=== PATIENT | female | born 1980 | race Caucasian/White ===

== ENCOUNTER 2022-03-19 09:41 | Emergency (ER) | payer OTHER, SELFPAY ==
--- NOTE | ~2022-03-19 | CT_ITS ---
EXAMINATION: CT HEAD WITHOUT CONTRAST CLINICAL INFORMATION: Left-sided headache left-sided weakness. COMPARISON: None TECHNIQUE: Contiguous axial imaging was performed from the skull base to vertex without intravenous administration of contrast. This CT examination was performed using dose optimization techniques as appropriate, variously including the following: *Automated exposure control *Adjustment of mA and/or kV according to patient size (this includes techniques or standardized protocols for targeted exams where dose is matched to indication/reason for exam; i.e. extremities or head) *Use of iterative reconstruction technique DLP: 586 mGy-cm FINDINGS: There is no mass hemorrhage or cerebral edema. Ventricles and basal cisterns normal. Soft tissues: Normal. Bone: No fracture. Sinuses: Mild mucosal thickening of the ethmoid sinuses. Mastoid air cells clear. CT/CT head/brain wo IV con IMPRESSION: No acute intracranial pathology.
[2022-03-19 09:50] VITALS: BP 140/84; PULSE 68; RESP 15; TEMP 36.4; O2SAT 97; BMI 35.9
[2022-03-19 10:10] LABS: MANUAL DIFF FLAG NO
[2022-03-19 10:11] LABS: Basophils Percent Auto 0.4 % (0-2); Eosinophils Absolute Auto 0.1 X10*3/uL (0.0-0.4); Eosinophils Percent Auto 0.6 % (0-4); Hematocrit 40.9 % (37.0-47.0); Hemoglobin 13.8 g/dl (12.0-16.0); Imm Gran Abs Auto 0.03 X10*3/uL (0.00-0.03); Imm Gran Pct Auto 0.4 % (0.0-0.4); Lymphocytes Absolute Auto 2.3 X10*3/uL (1.2-4.9); Lymphocytes Percent Auto 27.7 % (20-40); Mean Corpuscular HGB Conc 33.7 g/dl (31.0-35.0); Mean Corpuscular Hemoglobin 29.6 pg (27.0-33.0); Mean Corpuscular Volume 87.6 fL (80.0-98.0); Mean Platelet Volume 10.9 fL (9.4-12.3); Monocytes Absolute Auto 0.5 X10*3/uL (0.1-1.2); Monocytes Percent Auto 5.7 % (2-11); Neutrophils Absolute Auto 5.5 x10*3/uL (2.0-8.3); Neutrophils Percent Auto 65.2 % (45-73); Platelet Count 287 X10*3/uL (160-400); Red Blood Count 4.67 X10*6/uL (4.20-5.50); Red Cell Distribution Width 11.6 % (11.0-16.0); White Blood Count 8.4 X10*3/uL (4.8-10.8)
[2022-03-19 10:14] LABS: UPreg QC Valid YES; Urine Pregnancy NEGATIVE (NEGATIVE)
[2022-03-19 10:15] LABS: Appearance Urine Cloudy; Color Urine Yellow; Glucose Urine UA Negative (Negative); Leukocyte Esterase Urine Negative (Negative); Nitrite Urine Negative (Negative); PH 5.5 (5.0-9.0); Specific Gravity - Urine >= 1.030 (1.005-1.025); UMIC TRIGGER UACC YES; Urine Blood Large (3+) (Negative); Urine Ketones Trace mg/dL (Negative); Urine Protein 30 (1+) mg/dL (Neg-Trace)
[2022-03-19 10:25] LABS: Bacteria Urine 1+ (None Seen); Hyaline Casts Urine 0-2 /LPF (0-2); Squamous Epithelial Cell Urine >20 /HPF (0-2); WBC Urine 0-5 /HPF (0-5)
[2022-03-19 10:28] LABS: Anion Gap 12 (12-20); Blood Urea Nitrogen 12 mg/dL (9-16); Calcium 9.3 mg/dL (8.4-10.2); Carbon Dioxide 24 mmol/L (22-29); Chloride 106 mmol/L (96-108); Estimated Glomerular Filt Rate > 60; Glucose Random 114 mg/dL (60-115); Potassium 4.3 mmol/L (3.3-5.1); Sodium 138 mmol/L (135-145)
--- NOTE | 2022-03-19 11:12 | ED_ITS ---
HPI - Headache General Chief Complaint: Headache Stated Complaint: headache l eye pain l side pain Time Seen by Provider: 03/19/22 11:12 Source: patient Mode of arrival: ambulatory Limitations: no limitations History of Present Illness HPI Narrative: 42-year-old female with no known medical history presents to the ER for evaluation of a worsening left-sided headache for the last 3 days. She states the headache involves her entire left head, extends down into her neck. She has had stabbing pain behind both eyes, worse on the left side. She also states that she ?does not feel like her left side of her body is working right. ? She states she is having feeling of coldness and chills up and down her body. She has been nauseous with lightheadedness and dizziness as well. She has had pain in the left eye and behind the left eye. MD elicited complaint: headache Onset (ago): day(s) (3-4) Onset description: gradually Location: left and retro-orbital Severity: moderate Quality & Timing: aching Exacerbating factors: none Relieving factors: dark room Context: occurred at rest Associated symptoms: nausea, photophobia, sensitivity to sound, eye pain, wea kness and lightheadedness Treatments prior to arrival: none Related Data Previous Rx's Medication Instructions Recorded nthesfvhgf-buzygpqkijpia-mgtzussr 1 cap PO TID PRN pain #10 caps 03/19/22 50 mg-300 mg-40 mg capsule (Fioricet) Allergies Allergy/AdvReac Type Severity Reaction Status Date / Time aspirin Allergy Fainting Verified 03/19/22 11:32 Review of Systems Review of Systems: Constitutional: No Fever, No Chills ENT/Mouth: No sore throat, No Rhinorrhea, No Swallowing Difficulty Eyes: + Eye Pain, No Swelling, No Redness Cardiovascular: No Chest Pain, No SOB, No Orthopnea, No Edema Respiratory: No Cough, No Sputum, No Wheezing, No dyspnea Gastrointestinal: + Nausea, No Vomiting, No Diarrhea, No abdominal Pain Musculoskeletal: No joint pain, No Myalgias Skin: No Skin Lesions, No rash Neuro: +Weakness, + Numbness, + Dizziness, + Headache Psych: + Anxiety/Panic, No Depression Heme/Lymph: No Bruising, No Lymphadenopathy Endocrine: No Polyuria, No Polydipsia PMFSH Social History Social History Advance Directives: No Advance Directives Information Provided: No Physical Exam Vital Signs: Vital Signs: Last Vital Signs Temp 97.5 F 03/19/22 09:50 Pulse 66 03/19/22 13:31 Resp 20 03/19/22 13:31 BP 137/81 03/19/22 13:31 Pulse Ox 99 03/19/22 13:31 O2 Del Method 03/19/22 13:31 BMI result Body Mass Index 35.9 Appearance: Alert. Oriented X3. No acute distress. Eyes: Pupils equal, round and reactive to light. EOMI, no nystagmus. ENT: Pharynx normal. Neck: Normal inspection. Neck supple. CVS: Normal heart rate and rhythm. Pulses normal. Respiratory: No respiratory distress. Breath sounds normal. Abdomen: Soft and non-tender. +BS x4 Skin: Skin warm and dry. Normal skin color. Normal skin turgor. No rashes. Extremities: No lower extremity edema. Neuro: Oriented X 3. No motor deficit. No sensory deficit. CN II-XII intact. nonfocal. Normal speech and cognition. Course Course Course Narrative: 42-year-old female presents the ER for evaluation of left sided headache, left sided eye pain associated with nausea, dizzy left-sided weakness and tingling x3 days. She states she has had ongoing symptoms, intermittently since age 25 which she feels are related to possible MS but her doctors have attributed her sxs to anxiety. Today her neuro intact. No hx migraines in the past. Will get labs, CT head, and medicate with reglan, benadryl, toradol and reassess. Reevaluation(s) Reevaluation #1: Labs unremarkable. Inflammatory markers unremarkable. Viral test negative. CT head normal. Patient feeling better. She has an appointment with her PCP on April 02. She would like an MRI. We discussed the role of MRI in the emergency department versus outpatient. Comfortable discharge home with outpatient follow-up for her symptoms. Fioricet prescribed for headaches. Stable for DC. Patient agrees with plan. Medications Administered Discontinued Medications Generic Name Dose Route Start Last Admin Trade Name Freq PRN Reason Stop Dose Admin Diphenhydramine HCl 50 mg 03/19/22 11:13 03/19/22 11:33 Diphenhydramine Hcl 50 Mg/Ml Vial IVPUSH 03/19/22 11:14 50 mg ONCE ONE Administration Sodium Chloride 1,000 mls @ 999 mls/hr 03/19/22 11:15 03/19/22 13:23 Ns IVCONT 03/19/22 12:15 Infused .Q1H1M PEG Infusion Ketorolac Tromethamine 30 mg 03/19/22 11:13 03/19/22 11:48 Ketorolac Tromethamine 30 Mg/Ml Vial IVPUSH 03/19/22 11:14 Not Given ONCE ONE Metoclopramide HCl 10 mg 03/19/22 11:13 03/19/22 11:33 Metoclopramide Hcl 10 Mg/2 Ml Vial IVPUSH 03/19/22 11:14 10 mg ONCE ONE Administration Medical Decision Making Lab Data Result Diagrams: 03/19/22 10:04 03/19/22 10:04 Labs: Lab Results 03/19/22 03/19/22 03/19/22 Range/Units 10:04 10:04 10:04 WBC 8.4 (4.8-10.8) X10*3/uL RBC 4.67 (4.20-5.50) X10*6/uL Hgb 13.8 (12.0-16.0) g/dl Hct 40.9 (37.0-47.0) % MCV 87.6 (80.0-98.0) fL MCH 29.6 (27.0-33.0) pg MCHC 33.7 (31.0-35.0) g/dl RDW 11.6 (11.0-16.0) % Plt Count 287 (160-400) X10*3/uL MPV 10.9 (9.4-12.3) fL Immature Gran % (Auto) 0.4 (0.0-0.4) % Neut % (Auto) 65.2 (45-73) % Lymph % (Auto) 27.7 (20-40) % [place] % (Auto) 5.7 (2-11) % Eos % (Auto) 0.6 (0-4) % Baso % (Auto) 0.4 (0-2) % Lymph # (Auto) 2.3 (1.2-4.9) X10*3/uL [place] # (Auto) 0.5 (0.1-1.2) X10*3/uL Eos # (Auto) 0.1 (0.0-0.4) X10*3/uL Baso # (Auto) 0.0 (0.0-0.2) X10*3/uL Abs Immat Gran (auto) 0.03 (0.00-0.03) X10*3/uL Absolute Neuts (auto) 5.5 (2.0-8.3) x10*3/uL Absolute Nucleated RBC 0.000 (0.0-0.012) X10*3/uL Nucleated RBC % (auto) 0.0 (0.0-0.2) /100WBC ESR (0-20) MM/HR Sodium 138 (135-145) mmol/L Potassium 4.3 (3.3-5.1) mmol/L Chloride 106 (96-108) mmol/L Carbon Dioxide 24 (22-29) mmol/L Anion Gap 12 (12-20) BUN 12 (9-16) mg/dL Creatinine 0.71 (0.5-1.4) mg/dL Estim Creat Clear Calc 109.0 Estimated GFR > 60 Random Glucose 114 (60-115) mg/dL Calcium 9.3 (8.4-10.2) mg/dL C-Reactive Protein 0.84 H (< or = 0.50) mg/dL Urine Color Yellow Urine Appearance Cloudy Urine pH 5.5 (5.0-9.0) Ur Specific [place] >= 1.030 H (1.005-1.025) Urine Protein 30 (1+) H (Neg-Trace) mg/dL Urine Glucose (UA) Negative (Negative) mg/dL Urine Ketones Trace (Negative) mg/dL Urine Blood Large (3+) H (Negative) Urine Nitrite Negative (Negative) Ur Leukocyte Esterase Negative (Negative) Urine RBC 3-5 H (0-2) /HPF Urine WBC 0-5 (0-5) /HPF Ur Squamous Epith Cells >20 (0-2) /HPF Urine Bacteria 1+ (None Seen) Hyaline Casts 0-2 (0-2) /LPF Urine Test (NEGATIVE) Influenza Type A (PCR) (Negative) Influenza Type B (PCR) (Negative) RSV RNA Qual (PCR) (Negative) SARS-CoV-2 RNA (RT-PCR) (Negative) 03/19/22 03/19/2203/19/22 Range/Units 10:04 10:04 11:44 WBC (4.8-10.8) X10*3/uL RBC (4.20-5.50) X10*6/uL Hgb (12.0-16.0) g/dl Hct (37.0-47.0) % MCV (80.0-98.0) fL MCH (27.0-33.0) pg MCHC (31.0-35.0) g/dl RDW (11.0-16.0) % Plt Count (160-400) X10*3/uL MPV (9.4-12.3) fL Immature Gran % (Auto) (0.0-0.4) % Neut % (Auto) (45-73) % Lymph % (Auto) (20-40) % [place] % (Auto) (2-11) % Eos % (Auto) (0-4) % Baso % (Auto) (0-2) % Lymph # (Auto) (1.2-4.9) X10*3/uL [place] # (Auto) (0.1-1.2) X10*3/uL Eos # (Auto) (0.0-0.4) X10*3/uL Baso # (Auto) (0.0-0.2) X10*3/uL Abs Immat Gran (auto) (0.00-0.03) X10*3/uL Absolute Neuts (auto) (2.0-8.3) x10*3/uL Absolute Nucleated RBC (0.0-0.012) X10*3/uL Nucleated RBC % (auto) (0.0-0.2) /100WBC ESR 16 (0-20) MM/HR Sodium (135-145) mmol/L Potassium (3.3-5.1) mmol/L Chloride (96-108) mmol/L Carbon Dioxide (22-29) mmol/L Anion Gap (12-20) BUN (9-16) mg/dL Creatinine (0.5-1.4) mg/dL Estim Creat Clear Calc Estimated GFR Random Glucose (60-115) mg/dL Calcium (8.4-10.2) mg/dL C-Reactive Protein (< or = 0.50) mg/dL Urine Color Urine Appearance Urine pH (5.0-9.0) Ur Specific [place] (1.005-1.025) Urine Protein (Neg-Trace) mg/dL Urine Glucose (UA) (Negative) mg/dL Urine Ketones (Negative) mg/dL Urine Blood (Negative) Urine Nitrite (Negative) Ur Leukocyte Esterase (Negative) Urine RBC (0-2) /HPF Urine WBC (0-5) /HPF Ur Squamous Epith Cells (0-2) /HPF Urine Bacteria (None Seen) Hyaline Casts (0-2) /LPF Urine Test NEGATIVE (NEGATIVE) Influenza Type A (PCR) NEGATIVE (Negative) Influenza Type B (PCR) NEGATIVE (Negative) RSV RNA Qual (PCR) NEGATIVE (Negative) SARS-CoV-2 RNA (RT-PCR) NEGATIVE (Negative) Discharge Plan Discharge Clinical Impression: Migraine Patient Disposition: Home, Self-Care Instructions: Migraine Headache (ED) Additional Instructions: Your CT scan today was normal. Your lab workup was normal. Your viral test were negative. Recommend following up with her PCP. Recommend following up with Neurology for further evaluation. If you develop new or worsening symptoms call 911 or come back to the ER for fu rther evaluation. Prescriptions: New oyqsfjberd-vwldlupvbsjca-quba [Fioricet] 50-300-40 mg capsule 1 cap PO TID PRN (Reason: pain) Qty: 10 0RF Referrals: [facility] Neuro/Sleep [Provider Group] Malena Caceres MD [Primary Care Provider] -
[2022-03-19] MEDS: 0.9 % Sodium Chloride 1,000 ML 999 ML IVCONT (11:32)
[2022-03-19] MEDS: Metoclopramide HCl 10 MG/2 ML VIAL IVPUSH (11:33)
[2022-03-19] MEDS: diphenhydrAMINE HCL 50 MG/ML VIAL IVPUSH (11:33)
[2022-03-19 12:08] VITALS: BP 142/85; PULSE 87; RESP 15; O2SAT 98
[2022-03-19 12:42] LABS: Influenza A PCR NEGATIVE (Negative); Influenza B PCR NEGATIVE (Negative); Resp Syncy Virus RNA Qual PCR NEGATIVE (Negative); SARS COV2 PCR INHOUSE NEGATIVE (Negative)
[2022-03-19 13:31] VITALS: BP 137/81; PULSE 66; RESP 20; O2SAT 99
[2022-03-19 15:32] LABS: C Reactive Protein 0.84 mg/dL (< or = 0.50)
[2022-03-19 16:01] LABS: Erythrocyte Sedimentation Rate 16 MM/HR (0-20)
== END 2022-03-19 16:20 | disposition home or self-care (01) ==
PROVIDERS: Physician Assistant; Emergency Provider Student in an Organized Health Care Education/Training Program; PCP Internal Medicine
DX: G43.909 Migraine, unspecified, not intractable, without status migrainosus (principal); H57.12 Ocular pain, left eye; Z79.899 Other long term (current) drug therapy; Z20.822 Contact with and (suspected) exposure to COVID-19
CPT/HCPCS: 0241U; 36415; 70450; 80048; 81001; 81025; 85025; 85652; 86140; 96361; 96374; 96375; 99284; J1200; J2765

== ENCOUNTER 2023-02-08 23:01 | Emergency (ER) | payer OTHER, SELFPAY ==
--- NOTE | ~2023-02-08 | XR_ITS ---
EXAMINATION: XR CHEST CLINICAL INFORMATION: Chest pain COMPARISON: None available. TECHNIQUE: Frontal view of the chest was obtained. FINDINGS: The lungs are clear with no focal consolidation. No evidence of pneumothorax, pulmonary edema, or pleural effusions. The cardiomediastinal silhouette is unremarkable. No acute osseous findings. XR/XR chest 1V IMPRESSION: No acute cardiopulmonary findings.
[2023-02-08 23:46] VITALS: BP 167/69; PULSE 72; RESP 18; TEMP 36.8; O2SAT 97; BMI 40.7
--- NOTE | 2023-02-08 23:53 | MHC.EDTECH ---
Patient brought from triage,labs,and Sars/FLU/RSV, obtained and sent to lab.
[2023-02-08 23:59] LABS: Hematocrit 39.9 % (37.0-47.0); Hemoglobin 13.5 g/dl (12.0-16.0); Mean Corpuscular HGB Conc 33.8 g/dl (31.0-35.0); Mean Corpuscular Hemoglobin 29.7 pg (27.0-33.0); Mean Corpuscular Volume 87.7 fL (80.0-98.0); Mean Platelet Volume 10.9 fL (9.4-12.3); Platelet Count 281 X10*3/uL (160-400); Red Blood Count 4.55 X10*6/uL (4.20-5.50); Red Cell Distribution Width 11.7 % (11.0-16.0); White Blood Count 11.2 X10*3/uL (4.8-10.8)
[2023-02-09 00:15] LABS: Alanine Aminotransferase 14 U/L (0-31); Albumin Level 4.2 g/dL (3.5-5.0); Alkaline Phosphatase 55 U/L (39-117); Anion Gap 11 (12-20); Aspartate Amino Transferase 15 U/L (5-31); Bilirubin Total 0.3 mg/dL (0.0-1.0); Blood Urea Nitrogen 12 mg/dL (9-16); Calcium 9.6 mg/dL (8.4-10.2); Carbon Dioxide 26 mmol/L (22-29); Chloride 105 mmol/L (96-108); Creatinine Clr Calc Pharmacy 124.3; Estimated Glomerular Filt Rate > 60; Glucose Random 114 mg/dL (60-115); Potassium 3.8 mmol/L (3.3-5.1); Sodium 138 mmol/L (135-145); Total Protein 7.9 g/dL (6.5-8.0)
[2023-02-09 00:35] LABS: Influenza A PCR NEGATIVE (Negative); Influenza B PCR NEGATIVE (Negative); Resp Syncy Virus RNA Qual PCR NEGATIVE (Negative); SARS COV2 PCR INHOUSE NEGATIVE (Negative)
[2023-02-09 03:45] VITALS: BP 157/82; PULSE 67; RESP 14; TEMP 36.8; O2SAT 100
--- NOTE | 2023-02-09 03:46 | PC.NURSE ---
Pt ca&ox4, no signs of distress. family at bedside Pt reports cough onset x 2wks, lightheadedness, sob, congestion, post nasal drip, productive cough - white/yellow mucus, headache and mid/upper back pain 5/10. Sick contact gkid possible rsv. Pt also reports rash that comes and goes on chest and abdm that itches and pastrana. Pt denies n/v, diarrhea and fever. Plan of care ongoing.
--- NOTE | 2023-02-09 05:47 | ED_ITS ---
HPI - General Adult General Chief complaint: General Medical Stated complaint: SOB, Dizziness Time Seen by Provider: 02/09/23 04:02 History of Present Illness HPI narrative: Patient is a 43-year-old female presents today with having coughing upper respiratory symptoms, generalized malaise has been ongoing for few days. There is no diaphoresis. Cough is nonproductive in nature patient is vaccinated for COVID. Currently has quit smoking for last 3 years. Related Data Previous Rx's Medication Instructions Recorded qcolacpypk-errmozhuliqek-fgoiclnt 1 cap PO TID PRN pain #10 caps 03/19/22 50 mg-300 mg-40 mg capsule (Fioricet) azithromycin 250 mg tablet See Rx Instructions PO .COMPLEX 02/09/23 upper resp infection #6 tabs prednisone 20 mg tablet 40 mg (2 x 20 mg) PO DAILY #10 tabs 02/09/23 Allergies Allergy/AdvReac Type Severity Reaction Status Date / Time aspirin Allergy Fainting Verified 03/19/22 11:32 Review of Systems 2 Review of Systems: Positive coughing shortness of breath Yes all other systems are reviewed and are negative [facility] Past Medical History Attestation statement: The following information was validated with the patient. Social History Smoked in Last 30 Days: No Use of substances other than those prescribed or required for medical reasons: No Advance Directives: No Advance Directives Information Provided: Yes Physical Exam ED Vital Signs: Vital Signs - 24 hr 02/08/23 23:46 02/09/23 03:45 Temperature 98.2 F 98.2 F Pulse Rate 72 67 Respiratory Rate 18 14 Blood Pressure 167/69 H 157/82 H Pulse Oximetry 97 100 Oxygen Delivery Method Room Air Room Air BMI result Body Mass Index 40.7 Const Other: Appearance: Alert. Oriented X3. No acute distress. Eyes: Pupils equal, round and reactive to light. ENT: Pharynx normal. Neck: Normal inspection. Neck supple. No lymph nodes noted. No crepitus CVS: Normal heart rate and rhythm. Pulses normal. Normal S1 and S2 Respiratory: No respiratory distress. Breath sounds normal. Minimal Wheezing. No rales. Moving good air Abdomen: Soft and nontender. No rigidity. No distention. good BS x4 Skin: Skin warm and dry. Normal skin color. Normal skin turgor. Extremities: No lower extremity edema. Neurovascular intact to all extremities. No Lacerations. No Rash Neuro: Oriented X 3. No motor deficit. No sensory deficit. Moving all extermities. No slurred speech Medical Decision Making Medical Decision Making [facility] Narrative: Positive coughing shortness of breath generalized malaise. Patient's white count slightly elevated 11. Hemoglobin is normal at 13. LFTs are normal. Flu RSV COVID were all negative. My interpretation of patient's chest x-ray is grossly negative. There is no pneumonia no pneumothorax no rib fracture noted. Will give a neb treatment. My interpretation of patient's EKG showed a sinus rhythm heart rate is 80 [place] QRS QTC within normal limits there is no acute ST segment elevation Differential Diagnosis Differential Diagnoses: The differential diagnosis associated with the presentation includes Asthma, bronchitis, COVID, RSV, flu Admission/Observation Consideration of admission/observation: Escalation of care including admission/observation considered O2 sats normal patient well appearing no distress. Lab Data [facility] Lab Attestation statement: I reviewed the patient's lab results. 02/08/23 23:51 02/08/23 23:51 Labs: Lab Results 02/08/23 Range/Units 23:51 WBC 11.2 H (4.8-10.8) X10*3/uL RBC 4.55 (4.20-5.50) X10*6/uL Hgb 13.5 (12.0-16.0) g/dl Hct 39.9 (37.0-47.0) % MCV 87.7 (80.0-98.0) fL MCH 29.7 (27.0-33.0) pg MCHC 33.8 (31.0-35.0) g/dl RDW 11.7 (11.0-16.0) % Plt Count 281 (160-400) X10*3/uL MPV 10.9 (9.4-12.3) fL Absolute Nucleated RBC 0.000 (0.0-0.012) X10*3/uL Nucleated RBC % (auto) 0.0 (0.0-0.2) /100WBC Sodium 138 (135-145) mmol/L Potassium 3.8 (3.3-5.1) mmol/L Chloride 105 (96-108) mmol/L Carbon Dioxide 26 (22-29) mmol/L Anion Gap 11 L (12-20) BUN 12 (9-16) mg/dL Creatinine 0.66 (0.5-1.4) mg/dL Estim Creat Clear Calc 124.3 Estimated GFR > 60 Random Glucose 114 (60-115) mg/dL Calcium 9.6 (8.4-10.2) mg/dL Total Bilirubin 0.3 (0.0-1.0) mg/dL AST 15 (5-31) U/L ALT 14 (0-31) U/L Alkaline Phosphatase 55 (39-117) U/L Total Protein 7.9 (6.5-8.0) g/dL Albumin 4.2 (3.5-5.0) g/dL Influenza Type A (PCR) NEGATIVE (Negative) Influenza Type B (PCR) NEGATIVE (Negative) RSV RNA Qual (PCR) NEGATIVE (Negative) SARS-CoV-2 RNA (RT-PCR) NEGATIVE (Negative) Independent Interpretation I performed an independent interpretation of an: EKG and Plain X-Ray (Chest x- rays negative for pneumonia pneumothorax) Discharge Plan Discharge Clinical Impression: Bronchitis Patient Disposition: Home, Self-Care Instructions: Acute Bronchitis (ED) Prescriptions: New azithromycin 250 mg tablet See Rx Instructions .ROUTE .COMPLEX Qty: 6 0RF Rx Instructions: take 500 mg today (day 1), then 250 mg for 4 days (days 2-5) prednisone 20 mg tablet 40 mg PO DAILY Qty: 10 0RF No Action pgdbaoqmfq-uhpldqwdbvwil-pvvy [Fioricet] 50-300-40 mg capsule 1 cap PO TID PRN (Reason: pain) Qty: 10 0RF Referrals: Malena Caceres MD [Primary Care Provider] - 02/11/23
--- NOTE | 2023-02-09 05:50 | ECG_ITS ---
Test Reason : SOB Blood Pressure : / mmHG Vent. Rate : 079 BPM Atrial Rate : 079 BPM P-R Int : 134 ms QRS Dur : 078 ms QT Int : 358 ms P-R-T Axes : 011 -10 000 degrees QTc Int : 410 ms Normal sinus rhythm with sinus arrhythmia Normal ECG No previous ECGs available Referred By: Jeannie Bella Electronically Signed By:TYRA ONEILL MD
--- NOTE | 2023-02-09 06:28 | PC.NURSE ---
Resp called for med tx. plan of care ongoing.
[2023-02-09] MEDS: Albuterol Sulfate (0.083%) 2.5 MG/3 ML VIAL.NEB INHALE (06:35)
[2023-02-09 06:38] VITALS: PULSE 68; RESP 16; O2SAT 97
== END 2023-02-09 06:45 | disposition home or self-care (01) ==
PROVIDERS: Emergency Provider Emergency Medicine Emergency Medical Services; PCP Internal Medicine
DX: J40 Bronchitis, not specified as acute or chronic (principal); R05.9 Cough, unspecified; R53.81 Other malaise; Z20.822 Contact with and (suspected) exposure to COVID-19; Z20.828 Contact with and (suspected) exposure to other viral communicable diseases
CPT/HCPCS: 0241U; 71045; 80053; 85027; 93005; 94640; 99284; 99285

== ENCOUNTER 2023-02-26 22:34 | Emergency (ER) | payer OTHER, SELFPAY ==
[2023-02-26 23:19] VITALS: BP 176/89; PULSE 69; RESP 16; TEMP 36.6; O2SAT 99; BMI 40.7
[2023-02-27 00:49] VITALS: BP 117/74; PULSE 66; RESP 16; TEMP 36.7; O2SAT 96
--- NOTE | 2023-02-27 00:53 | MHC.EDTECH ---
This pct just assumed care of pt ,vitals taken ,urine sample collected and sent to lab.
--- NOTE | 2023-02-27 01:00 | MHC.EDTECH ---
Patient second type and screen drawn and sent to lab .
[2023-02-27 01:09] LABS: Appearance Urine Cloudy; Color Urine Yellow; Glucose Urine UA Negative (Negative); Leukocyte Esterase Urine Negative (Negative); Nitrite Urine Negative (Negative); PH 5.5 (5.0-9.0); Urine Blood Negative (Negative); Urine Ketones 15 mg/dL (Negative); Urine Protein Negative (Neg-Trace)
[2023-02-27] MEDS: Acetaminophen 325 MG TABLET 975 MG PO (01:24)
[2023-02-27] MEDS: Lidocaine 4 % Patch ADH..PATCH 1 PATCH TRANSDERMA ×2 (01:24→02:52)
[2023-02-27 01:28] LABS: UPreg QC Valid YES; Urine Pregnancy NEGATIVE (NEGATIVE)
[2023-02-27 01:52] LABS: COVID-19 Test Negative (Negative); IDNOW Serial# 08D9AD1C; IDNOW Serial# BCCEAD1C; Influenza A Negative (Negative); Influenza B2 Negative (Negative)
[2023-02-27 02:26] VITALS: BP 131/66; PULSE 63; RESP 16; TEMP 36.7; O2SAT 97
--- NOTE | 2023-02-27 02:32 | ED.BACK ---
HPI - Back Pain/Injury General Chief Complaint: Back Pain/Injury Stated Complaint: lower back pain Time Seen by Provider: 02/27/23 01:18 Source: patient Mode of arrival: ambulatory History of Present Illness HPI Narrative: 43-year-old female who suffers from depression and reports that yesterday she had a headache and then became very concerned and anxious and then woke up this morning with lower back pain, none of this is associated with fever, chills, nausea, vomiting, abdominal pain or dysuria and patient denies any IV drug use. Related Data Previous Rx's Medication Instructions Recorded qdpmrrzkdu-ebebyspkiercm-wjdqvcps 1 cap PO TID PRN pain #10 caps 03/19/22 50 mg-300 mg-40 mg capsule (Fioricet) azithromycin 250 mg tablet See Rx Instructions PO .COMPLEX 02/09/23 upper resp infection #6 tabs fluticasone propionate 50 1 spray intranasal DAILY #16 grams 02/09/23 mcg/actuation nasal spray,suspension (Flonase Allergy Relief) prednisone 20 mg tablet 40 mg (2 x 20 mg) PO DAILY #10 tabs 02/09/23 cyclobenzaprine 5 mg tablet 5 mg PO BEDTIME PRN muscle spasm 02/27/23 #4 tabs Allergies Allergy/AdvReac Type Severity Reaction Status Date / Time aspirin Allergy Fainting Verified 03/19/22 11:32 Review of Systems Review of Systems: Prep positives and negatives as stated in HPI PMFSH Past Medical History Source: nursing notes reviewed Social History Social History Advance Directives: No Advance Directives Information Provided: No Physical Exam Vital Signs: Vital Signs: Last Vital Signs Temp 98.0 F 02/27/23 02:26 Pulse 63 02/27/23 02:26 Resp 16 02/27/23 02:26 BP 131/66 02/27/23 02:26 Pulse Ox 97 02/27/23 02:26 O2 Del Method Room Air 02/27/23 02:26 BMI result Body Mass Index 40.7 VITAL SIGNS: Reviewed. GENERAL: Well developed, well nourished, in no acute distress. HEAD: Normocephalic/atraumatic EYES: PERRLA, EOMI EARS: Ext canals without abnormality, TMs non-bulging and non-erythematous NOSE: Nares patent bilateral OROPHARYNX: no oral lesions noted, posterior pharynx clear and non-erythematous without noted tonsillar enlargement/erythema/exudates NECK: Supple, no adenopathy, no midline cervical spine tenderness to palpation or step-offs, however there is tenderness to palpation across the right paraspinal base as it extends down onto the trapezius LUNGS: Normal breath sounds. No adventitious sounds or accessory muscle use. SpO2<97> CARDIOVASCULAR: Regular rate and rhythm without noted murmurs ABDOMEN: Soft, non-tender, non-distended with bowel sounds. BACK: No midline vertebral tenderness to palpation or step-offs. MUSCULOSKELETAL: No tenderness, deformities, or effusions noted on gross inspection. EXTREMITIES: No cyanosis, clubbing or edema. SKIN: Inspection of the skin reveals no rashes NEUROLOGIC: Alert and oriented x 4. Strength and sensation to light touch were grossly intact x 4. Medications Administered Discontinued Medications Generic Name Dose Route Start Last Admin Trade Name Freq PRN Reason Stop Dose Admin Acetaminophen 975 mg 02/27/23 01:17 02/27/23 01:24 Acetaminophen 325 Mg Tablet PO 02/27/23 01:18 975 mg ONCE ONE Administration Cyclobenzaprine HCl 5 mg 02/27/23 02:31 02/27/23 02:52 Cyclobenzaprine Hcl 5 Mg Tablet PO 02/27/23 02:32 5 mg ONCE ONE Administration Lidocaine 1 patch 02/27/23 01:17 02/27/23 01:24 Lidocaine 4 % Patch Adh..Patch TRANSDERMA 02/27/23 01:18 1 patch ONCE ONE Administration Protocol Lidocaine 1 patch 02/27/23 02:31 02/27/23 02:52 Lidocaine 4 % Patch Adh..Patch TRANSDERMA 02/27/23 02:32 1 patch ONCE ONE Administration Protocol Medical Decision Making Medical Decision Making MDM Narrative: 43-year-old female with history and clinical presentation, DDX: Musculoskeletal, muscle spasm, acute on chronic back pain. No clinical suspicion for spinal abscess/cauda equina. I reviewed urinalysis was negative for UTI or hematuria, urine is negative and viral testing is negative. Patient was provided with Tylenol/ibuprofen/lidocaine patch as well as Flexeril and on re-evaluation is improved. Differential Diagnosis Differential Diagnoses: The differential diagnosis associated with the presentation includes Please see the discussion above Admission/Observation Consideration of admission/observation: Escalation of care including admission/observation considered Please see the discussion above Lab Data MDM Lab Attestation statement: I reviewed the patient's lab results. Please see the discussion above Labs: Lab Results 02/27/23 02/27/23 Range/Units 00:55 01:24 Urine Color Yellow Urine Appearance Cloudy Urine pH 5.5 (5.0-9.0) Ur Specific [place] 1.010 (1.005-1.025) Urine Protein Negative (Neg-Trace) mg/dL Urine Glucose (UA) Negative (Negative) mg/dL Urine Ketones 15 (Negative) mg/dL Urine Blood Negative (Negative) Urine Nitrite Negative (Negative) Ur Leukocyte Esterase Negative (Negative) Urine Test NEGATIVE (NEGATIVE) COVID-19 (GIOVANI) Negative (Negative) COVID-19 Clin Com See Note Influenza Type A (KRISTY) Negative (Negative) Influenza Type B (KRISTY) Negative (Negative) Influenza A & B Note See Note Discharge Plan Discharge Clinical Impression: Back pain, Muscle spasm Patient Disposition: Home, Self-Care Instructions: Muscle Spasm (ED), Back Pain (ED) Additional Instructions: 1. Tylenol 1000 mg, orally, every 6 hours as needed for pain control. Do not exceed 4000 mg within 24 hours. 2. Ibuprofen 400 mg, orally with milk or food, every 6 hours as needed for pain control. 3. Valq-qtu-akpyigc lidocaine patch, apply to area of maximal tenderness as directed on the outside packaging. 4. Please follow-up with your primary care doctor on Tuesday morning. Do not hesitate to return to the emergency room for any acute worsening or new symptoms that you may experience. Prescriptions: New cyclobenzaprine 5 mg tablet 5 mg PO BEDTIME PRN (Reason: muscle spasm) Qty: 4 0RF No Action ucyplapscy-ngviuvmtqweac-pjxn [Fioricet] 50-300-40 mg capsule 1 cap PO TID PRN (Reason: pain) Qty: 10 0RF azithromycin 250 mg tablet See Rx Instructions .ROUTE .COMPLEX Qty: 6 0RF Rx Instructions: take 500 mg today (day 1), then 250 mg for 4 days (days 2-5) prednisone 20 mg tablet 40 mg PO DAILY Qty: 10 0RF fluticasone propionate [Flonase Allergy Relief] 50 mcg/actuation spray,suspension 1 spray intranasal DAILY Qty: 16 0RF Rx Instructions: administer into each nostril Referrals: Malena Caceres MD [Primary Care Provider] - Interventions: ED Discharge Assessment Last Done: 02/27/23 02:57 Discharge Date/Time: 02/27/23 02:58
[2023-02-27] MEDS: Cyclobenzaprine HCl 5 MG TABLET PO (02:52)
== END 2023-02-27 02:58 | disposition home or self-care (01) ==
PROVIDERS: Emergency Provider Student in an Organized Health Care Education/Training Program; PCP Internal Medicine
DX: M54.50 Low back pain, unspecified (principal); M62.830 Muscle spasm of back; Z11.52 Encounter for screening for COVID-19
CPT/HCPCS: 81003; 81025; 87502; 87635; 99284

== ENCOUNTER 2023-03-08 00:46 | Emergency (ER) | payer OTHER, SELFPAY ==
--- NOTE | 2023-03-08 | ECG_ITS ---
Test Reason : neck pain Blood Pressure : / mmHG Vent. Rate : 077 BPM Atrial Rate : 077 BPM P-R Int : 132 ms QRS Dur : 080 ms QT Int : 372 ms P-R-T Axes : 015 -15 000 degrees QTc Int : 420 ms Normal sinus rhythm Normal ECG When compared with ECG of 09-FEB-2023 06:02, No significant change was found Referred By: Generic ED Physician Electronically Signed By:TRISH TODD MD
--- NOTE | ~2023-03-08 | CT_ITS ---
EXAMINATION: CT HEAD WITHOUT CONTRAST CT ANGIOGRAM HEAD AND NECK CLINICAL INFORMATION: Headaches and facial numbness. COMPARISON: CT head dated 03/19/2022 TECHNIQUE: Noncontrast CT head was performed initially. Test bolus sequences followed by intravenous administration 70 mL of Omnipaque 300 intravenous contrast. Helical imaging was performed in the axial plane from the mediastinum to the skull vertex. Delayed postcontrast imaging of the head was also performed. The data was processed at the radiological technologist's workstation for generation of MIP sequences. Three-dimensional volume rendered reformatted images were also generated at an offline 3-D workstation. This CT examination was performed using dose optimization techniques as appropriate, variously including the following: *Automated exposure control *Adjustment of mA and/or kV according to patient size (this includes techniques or standardized protocols for targeted exams where dose is matched to indication/reason for exam; i.e. extremities or head) *Use of iterative reconstruction technique The degree of stenosis determined by NASCET criteria. DLP: 2059 mGy-cm FINDINGS: BONES, SOFT TISSUES AND LUNG APICES: No overt abnormality is appreciated. CTA NECK: The aortic arch has a classic configuration and the major arch vessel origins are non-stenotic. The vertebral arteries are co-dominant and both vertebral origins are widely patent. Both common carotid arteries are normal in course and caliber. Both internal carotid arteries demonstrate mild atherosclerotic plaque without significant stenosis. CTA HEAD: There is normal opacification of the major intracranial vessels. No acute proximal large vessel occlusion, focal flow-limiting stenosis, or saccular intracranial aneurysm is identified. No abnormal parenchymal enhancement or regional oligemia is visualized. HEAD (noncontrast and delayed): No intracranial mass, intercerebral edema, hemorrhage, or midline shift is evident. The ventricles and sulci are stable in size and configuration. No extra-axial collections are appreciated. No pathologic intracranial enhancement. Dural sinuses are patent. The paranasal sinuses are well-aerated and clear. CT/CT angio head neck IMPRESSION: * No acute intracranial pathology. * No large vessel occlusion or hemodynamically significant stenosis within the intracranial or extracranial arterial vasculature.
[2023-03-08 01:01] VITALS: BP 158/91; PULSE 83; RESP 20; TEMP 36.9; O2SAT 100; BMI 38.4
[2023-03-08 01:28] LABS: MANUAL DIFF FLAG NO
[2023-03-08 01:32] LABS: Basophils Percent Auto 0.3 % (0-2); Eosinophils Absolute Auto 0.1 X10*3/uL (0.0-0.4); Eosinophils Percent Auto 0.7 % (0-4); Hematocrit 39.1 % (37.0-47.0); Imm Gran Abs Auto 0.03 X10*3/uL (0.00-0.03); Imm Gran Pct Auto 0.3 % (0.0-0.4); Lymphocytes Absolute Auto 4.7 X10*3/uL (1.2-4.9); Lymphocytes Percent Auto 45.3 % (20-40); Mean Corpuscular HGB Conc 33.2 g/dl (31.0-35.0); Mean Corpuscular Hemoglobin 29.4 pg (27.0-33.0); Mean Corpuscular Volume 88.5 fL (80.0-98.0); Mean Platelet Volume 11.6 fL (9.4-12.3); Monocytes Absolute Auto 0.6 X10*3/uL (0.1-1.2); Monocytes Percent Auto 6.1 % (2-11); Neutrophils Absolute Auto 4.9 x10*3/uL (2.0-8.3); Neutrophils Percent Auto 47.3 % (45-73); Platelet Count 245 X10*3/uL (160-400); Red Blood Count 4.42 X10*6/uL (4.20-5.50); Red Cell Distribution Width 11.6 % (11.0-16.0); White Blood Count 10.3 X10*3/uL (4.8-10.8)
--- NOTE | 2023-03-08 01:40 | MHC.EDTECH ---
Patient ekg taken and was read by Provider ,blood drawn and sent to lab .
[2023-03-08 01:44] LABS: Alanine Aminotransferase 14 U/L (0-31); Albumin Level 4.1 g/dL (3.5-5.0); Alkaline Phosphatase 53 U/L (39-117); Anion Gap 14 (12-20); Aspartate Amino Transferase 16 U/L (5-31); Bilirubin Total 0.3 mg/dL (0.0-1.0); Blood Urea Nitrogen 12 mg/dL (9-16); Calcium 9.1 mg/dL (8.4-10.2); Carbon Dioxide 25 mmol/L (22-29); Chloride 105 mmol/L (96-108); Creatinine Clr Calc Pharmacy 110.2; Estimated Glomerular Filt Rate > 60; Glucose Random 108 mg/dL (60-115); Potassium 4.1 mmol/L (3.3-5.1); Sodium 140 mmol/L (135-145); Total Protein 7.6 g/dL (6.5-8.0)
[2023-03-08 01:49] LABS: Troponin-I High Sensitivity < 2.7 ng/L (<3.5-17.0)
[2023-03-08 03:35] VITALS: BP 128/81; PULSE 101; RESP 16; TEMP 36.8; O2SAT 97
--- NOTE | 2023-03-08 03:54 | ED.NEUROSD ---
HPI - Neuro Symptoms/Deficit General Chief Complaint: General Medical Stated Complaint: neck pain Time Seen by Provider: 03/08/23 03:27 Source: patient Mode of arrival: ambulatory Limitations: no limitations History of Present Illness HPI Narrative: 43 yo female with reported TIA 9 years ago but not on medications and the history of diagnosis did not involve neurology - she is not on aspirin or a statin currently. She tells me she has been dealing with atraumatic neck pain bilaterally for 1 day. Denies injury or overuse. She notes she woke up around midnight with tingling in both hands, facial numbness, palpitations and feeling pale and shaky. This lasted seconds she came to the ED. She denies recent neck trauma or manipulation Onset (ago): hour(s) (4) Location: left face, right face, left arm and right arm History of same: No Severity: mild Quality: numb and tingling Relieving factors: rest Exacerbating factors: none Context: sudden onset On Anticoagulants: No Associated symptoms: other (neck pain) Related Data Previous Rx's Medication Instructions Recorded fpiflpeqen-tkihujlsztrkf-kazsbdap 1 cap PO TID PRN pain #10 caps 03/19/22 50 mg-300 mg-40 mg capsule (Fioricet) azithromycin 250 mg tablet See Rx Instructions PO .COMPLEX 02/09/23 upper resp infection #6 tabs fluticasone propionate 50 1 spray intranasal DAILY #16 grams 02/09/23 mcg/actuation nasal spray,suspension (Flonase Allergy Relief) prednisone 20 mg tablet 40 mg (2 x 20 mg) PO DAILY #10 tabs 02/09/23 cyclobenzaprine 5 mg tablet 5 mg PO BEDTIME PRN muscle spasm 02/27/23 #4 tabs Allergies Allergy/AdvReac Type Severity Reaction Status Date / Time aspirin Allergy Fainting Verified 03/19/22 11:32 Review of Systems Review of Systems: Constitutional : No Fever, No Chills, No Fatigue ENT/Mouth : No sore throat, No Rhinorrhea Eyes: No Eye Pain, No Swelling, No Redness Cardiovascular : No Chest Pain, No SOB, No Dyspnea on Exertion, pos palpitations Respiratory : No Cough, No Sputum Gastrointestinal : No Nausea, No Vomiting, No Diarrhea, No abdominal Pain Genitourinary : No Dysuria, No Urinary Frequency, No Hematuria, Musculoskeletal : No joint pain, No Myalgias, No Joint Swelling Skin : No Skin Lesions, No rash Neuro : No Weakness, pos Numbness, No Dizziness, no Headache Psych : No Anxiety/Panic, No Depression All other systems reviewed and are negative [facility] [place] Past Medical History Attestation statement: The following information was validated with the patient. Source: old records reviewed Social History Social History Alcohol intake: current Alcohol intake frequency: a few times a week Alcohol type: wine Smoked in Last 30 Days: No Use of substances other than those prescribed or required for medical reasons: No Advance Directives: No Advance Directives Information Provided: No Physical Exam Vital Signs: Vital Signs: Last Vital Signs Temp 98.3 F 03/08/23 05:55 Pulse 106 H 03/08/23 05:55 Resp 16 03/08/23 05:55 BP 140/70 H 03/08/23 05:55 Pulse Ox 97 03/08/23 05:55 O2 Del Method Room Air 03/08/23 05:55 BMI result Body Mass Index 38.4 Appearance: Alert. Oriented X3. No acute distress. Eyes: Pupils equal, round and reactive to light. ENT: Pharynx normal. Neck: Normal inspection. Neck supple. CVS: Normal heart rate and rhythm. Pulses normal. Respiratory: No respiratory distress. Breath sounds normal. Abdomen: Soft and nontender. Skin: Skin warm and dry. Normal skin color. Normal skin turgor. Extremities: No lower extremity edema. No calf ttp Neuro: Oriented X 3. No motor deficit. No sensory deficit. Medications Administered Discontinued Medications Generic Name Dose Route Start Last Admin Trade Name Shahram PRN Reason Stop Dose Admin Iohexol 75 ml 03/08/23 05:49 03/08/23 05:49 Iohexol 350 Mg/Ml 100 Ml Infus..Btl IV 03/08/23 05:50 75 ml ONCE ONE Administration Medical Decision Making Medical Decision Making [facility] Narrative: 43 yo female with reported TIA though I see no abnormal CT scans here she is not on medications for TIA and did not see a neurologist who comes in with palpitations, bilateral hand tingling and neck pain (neck pain x 1 day) at this time symptoms are atypical will obtain EKG, lytes and CTA head and neck for dissection though would be low clinical probability. She is not toxic and NIH is 0 at this time. Differential Diagnosis Differential Diagnoses: The differential diagnosis associated with the presentation includes palpitaitons, anxiety, neck spasm Admission/Observation Consideration of admission/observation: Escalation of care including admission/observation considered can be discharged home - CTA negative, NIH 0, EKG and trop negative Lab Data MDM Lab Attestation statement: I reviewed the patient's lab results. 03/08/23 01:24 03/08/23 01:24 Labs: Lab Results 03/08/23 Range/Units 01:24 WBC 10.3 (4.8-10.8) X10*3/uL RBC 4.42 (4.20-5.50) X10*6/uL Hgb 13.0 (12.0-16.0) g/dl Hct 39.1 (37.0-47.0) % MCV 88.5 (80.0-98.0) fL MCH 29.4 (27.0-33.0) pg MCHC 33.2 (31.0-35.0) g/dl RDW 11.6 (11.0-16.0) % Plt Count 245 (160-400) X10*3/uL MPV 11.6 (9.4-12.3) fL Immature Gran % (Auto) 0.3 (0.0-0.4) % Neut % (Auto) 47.3 (45-73) % Lymph % (Auto) 45.3 H (20-40) % [place] % (Auto) 6.1 (2-11) % Eos % (Auto) 0.7 (0-4) % Baso % (Auto) 0.3 (0-2) % Lymph # (Auto) 4.7 (1.2-4.9) X10*3/uL [place] # (Auto) 0.6 (0.1-1.2) X10*3/uL Eos # (Auto) 0.1 (0.0-0.4) X10*3/uL Baso # (Auto) 0.0 (0.0-0.2) X10*3/uL Abs Immat Gran (auto) 0.03 (0.00-0.03) X10*3/uL Absolute Neuts (auto) 4.9 (2.0-8.3) x10*3/uL Absolute Nucleated RBC 0.000 (0.0-0.012) X10*3/uL Nucleated RBC % (auto) 0.0 (0.0-0.2) /100WBC Sodium 140 (135-145) mmol/L Potassium 4.1 (3.3-5.1) mmol/L Chloride 105 (96-108) mmol/L Carbon Dioxide 25 (22-29) mmol/L Anion Gap 14 (12-20) BUN 12 (9-16) mg/dL Creatinine 0.72 (0.5-1.4) mg/dL Estim Creat Clear Calc 110.2 Estimated GFR > 60 Random Glucose 108 (60-115) mg/dL Calcium 9.1 (8.4-10.2) mg/dL Total Bilirubin 0.3 (0.0-1.0) mg/dL AST 16 (5-31) U/L ALT 14 (0-31) U/L Alkaline Phosphatase 53 (39-117) U/L Troponin I High Sens < 2.7 (<3.5-17.0) ng/L Total Protein 7.6 (6.5-8.0) g/dL Albumin 4.1 (3.5-5.0) g/dL Independent Interpretation I performed an independent interpretation of an: EKG and CT Scan (normal ) Interpretation: Rate: 77 Rhythm: NSR Campbell: left Normal P waves. Normal ITZEL. Normal QRS complex. ST T wave : normal no CRYSTAL qTC: normal prior studies: no acute ischemia The study has been interpreted contemporaneously by me. . Radiology Impression Discussion of test interpretation with radiology: I have reviewed the radiologist's reading. Independent Historian Clinical information obtained from an independent historian. History obtained from or confirmed by: Other External Record Review External record reviewed: Inpatient record NIH Stroke Scale Internal: Initial- Upon Arrival Level of Consciousness: Alert Level of Consciousness Questions: Answers both questions correctly Level of Consciousness Commands: Performs both tasks correctly Best Gaze: Normal Visual: No visual loss Facial Palsy: Normal Motor Arm (Right): No drift Motor Arm (Left): No drift Motor Leg (Right): No drift Motor Leg (Left): No drift Limb Ataxia: Absent Sensory: Normal Best Language: No aphasia Dysarthia: Normal Extinction and Inattention: No abnormality Score: 0 Discharge Plan Discharge Clinical Impression: Heart palpitations, Neck pain Patient Disposition: Home, Self-Care Instructions: Heart Palpitations (ED), Neck Pain (ED) Additional Instructions: return for weakness, numbness, chest pain or any other concerns. follow up with your doctor. BONES, SOFT TISSUES AND LUNG APICES: No overt abnormality is appreciated. CTA NECK: The aortic arch has a classic configuration and the major arch vessel origins are non-stenotic. The vertebral arteries are co-dominant and both vertebral origins are widely patent. Both common carotid arteries are normal in course and caliber. Both internal carotid arteries demonstrate mild atherosclerotic plaque without significant stenosis. CTA HEAD: There is normal opacification of the major intracranial vessels. No acute proximal large vessel occlusion, focal flow-limiting stenosis, or saccular intracranial aneurysm is identified. No abnormal parenchymal enhancement or regional oligemia is visualized. HEAD (noncontrast and delayed): No intracranial mass, intercerebral edema, hemorrhage, or midline shift is evident. The ventricles and sulci are stable in size and configuration. No extra-axial collections are appreciated. No pathologic intracranial enhancement. Dural sinuses are patent. The paranasal sinuses are well-aerated and clear. CT/CT angio head neck IMPRESSION: * No acute intracranial pathology. * No large vessel occlusion or hemodynamically significant stenosis within the intracranial or extracranial arterial vasculature. Prescriptions: No Action fvyxlkutid-yowcvthugqvrk-niks [Fioricet] 50-300-40 mg capsule 1 cap PO TID PRN (Reason: pain) Qty: 10 0RF azithromycin 250 mg tablet See Rx Instructions .ROUTE .COMPLEX Qty: 6 0RF Rx Instructions: take 500 mg today (day 1), then 250 mg for 4 days (days 2-5) prednisone 20 mg tablet 40 mg PO DAILY Qty: 10 0RF fluticasone propionate [Flonase Allergy Relief] 50 mcg/actuation spray,suspension 1 spray intranasal DAILY Qty: 16 0RF Rx Instructions: administer into each nostril cyclobenzaprine 5 mg tablet 5 mg PO BEDTIME PRN (Reason: muscle spasm) Qty: 4 0RF Stand Alone Forms: Work/School Release
[2023-03-08] MEDS: iohexoL 350 MG/ML 100 ML INFUS..BTL 75 ML IV (05:49)
[2023-03-08 05:55] VITALS: BP 140/70; PULSE 106; RESP 16; TEMP 36.8; O2SAT 97
--- NOTE | 2023-03-08 06:38 | PC.NURSE ---
Pt A&Ox4, reports right side neck discomfort feeling like pressure since yesterday with intermittent tingling feeling to bilateral hands. 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 Pt ambulated independently with steady gait.
== END 2023-03-08 06:43 | disposition home or self-care (01) ==
PROVIDERS: Emergency Provider Emergency Medicine; PCP Internal Medicine
DX: R00.2 Palpitations (principal); M54.2 Cervicalgia; Z86.73 Personal history of transient ischemic attack (TIA), and cerebral infarction without residual deficits; Z79.899 Other long term (current) drug therapy
CPT/HCPCS: 36415; 70496; 70498; 80053; 84484; 85025; 93005; 99284; Q9967

== ENCOUNTER → 2023-03-08 01:08 | Outpatient (BNV) | payer OTHER, SELFPAY | PROVIDERS: Emergency Provider Emergency Medicine; PCP Internal Medicine; Visit Provider Internal Medicine Cardiovascular Disease | DX: R00.2 Palpitations (principal); M54.2 Cervicalgia | CPT/HCPCS: 93010 ==

== ENCOUNTER 2023-12-10 06:53 | Emergency (ER) | payer OTHER, SELFPAY ==
--- NOTE | 2023-12-10 | ECG_ITS ---
Test Reason : PALPATATIONS Blood Pressure : / mmHG Vent. Rate : 057 BPM Atrial Rate : 057 BPM P-R Int : 136 ms QRS Dur : 078 ms QT Int : 404 ms P-R-T Axes : -12 000 002 degrees QTc Int : 393 ms Sinus bradycardia Otherwise normal ECG When compared with ECG of 08-MAR-2023 01:08, No significant change was found Referred By: Jane Bueno Electronically Signed By:FIOR SAMANO
--- NOTE | ~2023-12-10 | XR_ITS ---
EXAMINATION: XR CHEST 1 VIEW CLINICAL INFORMATION: palpitation COMPARISON: January 2023 TECHNIQUE: Single portable frontal view. Tubes and lines: None Lungs and pleura: Both lungs are clear. Heart and mediastinum: The mediastinum is within normal limits.. Bones/soft tissue: Skeletal structures included are normal for patient's age. XR/XR chest 1V IMPRESSION: Normal chest x-ray Electronically signed by: Mehdi Zaidi MD 12/10/2023 09:57 AM EDT
[2023-12-10 06:57] VITALS: BP 145/93; PULSE 79; RESP 18; TEMP 36.9; O2SAT 98; BMI 39.9
--- NOTE | 2023-12-10 07:41 | ED.GENADULT ---
HPI - General Adult General Chief complaint: General Medical Stated complaint: heart flutter upon exertion/sob more often Time Seen by Provider: 12/10/23 07:31 Source: patient and family Mode of arrival: ambulatory Limitations: no limitations History of Present Illness ED Provider: DR. Bueno HPI narrative: 43-year-old female walked into the emergency department for evaluation of palpitation and chest pain with exertion. Symptoms started recently when she goes upstairs started have palpitation feel like her heart is going to stop palpitation is accompanied with a mid chest pain with no radiation, symptoms also was associated with shortness of breath, patient recently quit smoking, declined using any drugs. No recent travel, no recent prolonged immobilization, no lower extremity swelling or tenderness. Patient had cardiology evaluation last year for chest pain and reportedly the workup was negative. Related Data Previous Rx's ?Medication ?Instructions ?Recorded hbhqmcsjpq-lyuejltbhcpdx-oukiejow 1 cap PO TID PRN pain #10 caps 03/19/22 50 mg-300 mg-40 mg capsule (Fioricet) azithromycin 250 mg tablet See Rx Instructions PO .COMPLEX 02/09/23 upper resp infection #6 tabs fluticasone propionate 50 1 spray intranasal DAILY #16 grams 02/09/23 mcg/actuation nasal spray,suspension (Flonase Allergy Relief) prednisone 20 mg tablet 40 mg (2 x 20 mg) PO DAILY #10 tabs 02/09/23 cyclobenzaprine 5 mg tablet 5 mg PO BEDTIME PRN muscle spasm 02/27/23 #4 tabs cefuroxime axetil 500 mg tablet 500 mg PO BID #14 tabs 12/10/23 Allergies Allergy/AdvReac Type Severity Reaction Status Date / Time aspirin Allergy Fainting Verified 12/10/23 07:00 Review of Systems Review of Systems: All other systems are reviewed and are negative Constitutional: Reports as per HPI and Reports no additional constitutional complaints Eyes: Reports as per HPI and Reports no additional eye complaints Reports system reviewed and no additional complaints, except as documented Cardiovascular: Reports as per HPI and Reports no additional cardiovascular complaints Respiratory: Reports as per HPI and Reports no additional respiratory complaints Gastrointestinal: Reports as per HPI and Reports no additional gastrointestinal complaints Genitourinary: Reports no additional female genitourinary complaints Musculoskeletal: Reports no additional musculoskeletal complaints Skin/Breast: Reports system reviewed and no additional complaints, except as docu Psychiatric: Reports no additional psychiatric complaints Endocrine: Reports no additional endocrine complaints Hematologic/Lymphatic: Reports no additional hematologic/lymphatic complaints Allergic/Immunologic: Reports no additional allergic/immunologic complaints Reports system reviewed and no additional complaints, except as documented and Reports Abnormal speech present [facility] Social History Social History Alcohol intake: current Alcohol intake frequency: a few times a week Alcohol type: wine Advance Directives: No Advance Directives Information Provided: No Do you have a plan to hurt others: No Plan Physical Exam ED Vital Signs: Vital Signs - 24 hr 12/10/23 06:57 12/10/23 08:30 12/10/23 09:27 Temperature 98.5 F 98.4 F 98.4 F Pulse Rate 79 61 61 Respiratory Rate 18 18 18 Blood Pressure 145/93 H 150/79 H 150/79 H Pulse Oximetry 98 97 97 Oxygen Delivery Method Room Air Room Air Room Air BMI result Body Mass Index 39.9 Vital signs have been reviewed and appear to be correct. Blood pressure elevated. Heart rate normal. Respiratory rate normal. Temperature normal. Oxygen saturation normal. Appearance: Alert. Oriented X3. No acute distress. Head: Normal external exam. Normocephalic. Atraumatic. No Caro signs noted. No raccoon eyes noted Eyes: PERRLA. EOMI. Conjunctiva and sclera normal. Eyelids normal. ENT: TM's Normal. Pharynx normal. Uvula midline. Moist mucous membranes. No trismus noted. No drooling noted. No muffled voice noted. Neck: Normal inspection. Neck supple. FROM. No adenopathy. Thyroid Normal. No meningeal signs. No neck mass noted. CVS: Normal heart rate and rhythm. Heart sound normal. No murmurs noted. Pulses normal throughout. Respiratory: No respiratory distress. Painless inspiration. Breath sounds normal. No wheezes/rales/rhonchi noted. Chest nontender. No accessory muscle usage noted or decreased air movement noted. Abdomen: Soft and nontender. Bowel sounds normal in all 4 quadrants. No distention noted. No organomegaly noted. No visible injury noted. Back: No CVA tenderness. Full range of motion noted. Skin: Skin warm and dry. Normal skin color. Normal skin turgor. No rashes/lesions/lacerations noted. Extremities: No lower extremity edema. Extremities exhibit normal range of motion. Extremities nontender. Neuro: Oriented X 3. Cranial nerve exam: II-XII are grossly intact No motor deficit. No sensory deficit. Reflexes normal. Course Reevaluation(s) Reevaluation #1: Exertional shortness of breath and palpitation, unremarkable EKG, with negative troponin. Patient was instructed to follow-up with PCP will need outpatient cardiology follow-up. UA is revealing mild UTI will start on Ceftin. Time: 09:00 Medications Administered Discontinued Medications Generic Name Dose Route Start Last Admin Trade Name Freq PRN Reason Stop Dose Admin Lorazepam 1 mg 12/10/23 08:40 12/10/23 08:50 Lorazepam 1 Mg Tablet PO 12/10/23 08:41 1 mg ONCE ONE Administration Medical Decision Making Differential Diagnosis Differential Diagnoses: The differential diagnosis associated with the presentation includes ( ACS, pulmonary embolism, electrolyte derangement, severe anemia, pneumonia, pneumothorax, pleural effusion, , anxiety, UTI, .) Admission/Observation Consideration of admission/observation: Escalation of care including admission/observation considered Lab Data MDM Lab Attestation statement: I reviewed the patient's lab results. 12/10/23 07:52 12/10/23 07:52 Labs: Lab Results 12/10/23 12/10/23 Range/Units 07:52 08:00 WBC 9.8 (4.8-10.8) X10*3/uL RBC 4.21 (4.20-5.50) X10*6/uL Hgb 12.6 (12.0-16.0) g/dl Hct 37.3 (37.0-47.0) % MCV 88.6 (80.0-98.0) fL MCH 29.9 (27.0-33.0) pg MCHC 33.8 (31.0-35.0) g/dl RDW 11.9 (11.0-16.0) % Plt Count 250 (160-400) X10*3/uL MPV 11.3 (9.4-12.3) fL Immature Gran % (Auto) 0.4 (0.0-0.4) % Neut % (Auto) 62.4 (45-73) % Lymph % (Auto) 30.1 (20-40) % [place] % (Auto) 6.1 (2-11) % Eos % (Auto) 0.8 (0-4) % Baso % (Auto) 0.2 (0-2) % Lymph # (Auto) 3.0 (1.2-4.9) X10*3/uL [place] # (Auto) 0.6 (0.1-1.2) X10*3/uL Eos # (Auto) 0.1 (0.0-0.4) X10*3/uL Baso # (Auto) 0.0 (0.0-0.2) X10*3/uL Abs Immat Gran (auto) 0.04 H (0.00-0.03) X10*3/uL Absolute Neuts (auto) 6.1 (2.0-8.3) x10*3/uL Absolute Nucleated RBC 0.000 (0.0-0.012) X10*3/uL Nucleated RBC % (auto) 0.0 (0.0-0.2) /100WBC D-Dimer High Sensitivty 159 NG/ML Sodium 137 (135-145) mmol/L Potassium 3.9 (3.3-5.1) mmol/L Chloride 105 (96-108) mmol/L Carbon Dioxide 23 (22-29) mmol/L Anion Gap 13 (12-20) BUN 9 (9-16) mg/dL Creatinine 0.72 (0.5-1.4) mg/dL Estim Creat Clear Calc 112.7 Estimated GFR > 60 Random Glucose 115 (60-115) mg/dL Calcium 8.9 (8.4-10.2) mg/dL Total Bilirubin 0.7 (0.0-1.0) mg/dL Direct Bilirubin 0.2 (0.0-0.5) mg/dL AST 14 (5-31) U/L ALT 15 (0-31) U/L Alkaline Phosphatase 52 (39-117) U/L Troponin I High Sens < 2.7 (<3.5-17.0) ng/L Total Protein 7.2 (6.5-8.0) g/dL Albumin 3.9 (3.5-5.0) g/dL Lipase 22 (8-78) U/L Urine Color Yellow Urine Appearance Cloudy Urine pH 5.5 (5.0-9.0) Ur Specific [place] 1.025 (1.005-1.025) Urine Protein Negative (Neg-Trace) mg/dL Urine Glucose (UA) Negative (Negative) mg/dL Urine Ketones Negative (Negative) mg/dL Urine Blood Negative (Negative) Urine Nitrite Negative (Negative) Ur Leukocyte Esterase Moderate (2+) H (Negative) Urine RBC 0-2 (0-2) /HPF Urine WBC 11-20 H (0-5) /HPF Ur Squamous Epith Cells 11-20 (0-2) /HPF Urine Bacteria 1+ (None Seen) Hyaline Casts 0-2 (0-2) /LPF Urine Test NEGATIVE (NEGATIVE) Independent Interpretation I performed an independent interpretation of an: EKG ( normal sinus rhythm at 57 beats per minute, no ST-T changes, no significant change from previous EKG.) and Plain X-Ray ( Chest:no acute intrathoracic pathology.) Radiology Impression Discussion of test interpretation with radiology: I have reviewed the radiologist's reading. Discharge Plan Discharge Clinical Impression: Palpitation, Chest pain, exertional, UTI (urinary tract infection) Patient Disposition: Home, Self-Care Instructions: Chest Pain (ED), Urinary Tract Infection in Women (ED) Prescriptions: New cefuroxime axetil 500 mg tablet 500 mg PO BID Qty: 14 0RF No Action djbyjysavz-pmuyghoqielaw-eimp [Fioricet] 50-300-40 mg capsule 1 cap PO TID PRN (Reason: pain) Qty: 10 0RF azithromycin 250 mg tablet See Rx Instructions .ROUTE .COMPLEX Qty: 6 0RF Rx Instructions: take 500 mg today (day 1), then 250 mg for 4 days (days 2-5) prednisone 20 mg tablet 40 mg PO DAILY Qty: 10 0RF fluticasone propionate [Flonase Allergy Relief] 50 mcg/actuation spray,suspension 1 spray intranasal DAILY Qty: 16 0RF Rx Instructions: administer into each nostril cyclobenzaprine 5 mg tablet 5 mg PO BEDTIME PRN (Reason: muscle spasm) Qty: 4 0RF Referrals: Malena Caceres MD [Primary Care Provider] - Elliot Hannon MD [Physician] - Interventions: ED Discharge Assessment Last Done: 12/10/23 09:27 Discharge Date/Time: 12/10/23 09:28 Print Language: Maldivian
[2023-12-10 07:57] LABS: MANUAL DIFF FLAG NO
[2023-12-10 08:00] LABS: Basophils Percent Auto 0.2 % (0-2); Eosinophils Absolute Auto 0.1 X10*3/uL (0.0-0.4); Eosinophils Percent Auto 0.8 % (0-4); Hematocrit 37.3 % (37.0-47.0); Hemoglobin 12.6 g/dl (12.0-16.0); Imm Gran Abs Auto 0.04 X10*3/uL (0.00-0.03); Imm Gran Pct Auto 0.4 % (0.0-0.4); Lymphocytes Percent Auto 30.1 % (20-40); Mean Corpuscular HGB Conc 33.8 g/dl (31.0-35.0); Mean Corpuscular Hemoglobin 29.9 pg (27.0-33.0); Mean Corpuscular Volume 88.6 fL (80.0-98.0); Mean Platelet Volume 11.3 fL (9.4-12.3); Monocytes Absolute Auto 0.6 X10*3/uL (0.1-1.2); Monocytes Percent Auto 6.1 % (2-11); Neutrophils Absolute Auto 6.1 x10*3/uL (2.0-8.3); Neutrophils Percent Auto 62.4 % (45-73); Platelet Count 250 X10*3/uL (160-400); Red Blood Count 4.21 X10*6/uL (4.20-5.50); Red Cell Distribution Width 11.9 % (11.0-16.0); White Blood Count 9.8 X10*3/uL (4.8-10.8)
[2023-12-10 08:07] LABS: D Dimer High Sensitivity 159 NG/ML
[2023-12-10 08:12] LABS: Appearance Urine Cloudy; Color Urine Yellow; Glucose Urine UA Negative (Negative); Leukocyte Esterase Urine Moderate (2+) (Negative); Nitrite Urine Negative (Negative); PH 5.5 (5.0-9.0); Specific Gravity - Urine 1.025 (1.005-1.025); UMIC TRIGGER UACC YES; Urine Blood Negative (Negative); Urine Ketones Negative (Negative); Urine Protein Negative (Neg-Trace)
[2023-12-10 08:14] LABS: UPreg QC Valid YES; Urine Pregnancy NEGATIVE (NEGATIVE)
[2023-12-10 08:17] LABS: Alanine Aminotransferase 15 U/L (0-31); Albumin Level 3.9 g/dL (3.5-5.0); Alkaline Phosphatase 52 U/L (39-117); Anion Gap 13 (12-20); Aspartate Amino Transferase 14 U/L (5-31); Bilirubin Direct 0.2 mg/dL (0.0-0.5); Bilirubin Total 0.7 mg/dL (0.0-1.0); Blood Urea Nitrogen 9 mg/dL (9-16); Calcium 8.9 mg/dL (8.4-10.2); Carbon Dioxide 23 mmol/L (22-29); Chloride 105 mmol/L (96-108); Creatinine Clr Calc Pharmacy 112.7; Estimated Glomerular Filt Rate > 60; Glucose Random 115 mg/dL (60-115); Lipase 22 U/L (8-78); Potassium 3.9 mmol/L (3.3-5.1); Sodium 137 mmol/L (135-145); Total Protein 7.2 g/dL (6.5-8.0)
[2023-12-10 08:17] LABS: Bacteria Urine 1+ (None Seen); Hyaline Casts Urine 0-2 /LPF (0-2); RBC Urine 0-2 /HPF (0-2); UACC Culture Trigger YES
[2023-12-10 08:24] LABS: Troponin-I High Sensitivity < 2.7 ng/L (<3.5-17.0)
[2023-12-10 08:30] VITALS: BP 150/79; PULSE 61; RESP 18; TEMP 36.9; O2SAT 97
[2023-12-10] MEDS: LORazepam 1 MG TABLET PO (08:50)
[2023-12-10 09:27] VITALS: BP 150/79; PULSE 61; RESP 18; TEMP 36.9; O2SAT 97
== END 2023-12-10 09:28 | disposition home or self-care (01) ==
PROVIDERS: Emergency Provider Emergency Medicine; PCP Internal Medicine
DX: R00.2 Palpitations (principal); R07.9 Chest pain, unspecified; R06.02 Shortness of breath; N39.0 Urinary tract infection, site not specified
CPT/HCPCS: 36415; 71045; 80048; 80076; 81001; 81025; 83690; 84484; 85025; 85379; 87086; 93005; 99283; 99284

== ENCOUNTER 2023-12-20 14:47 | Outpatient (AMB) | payer OTHER, SELFPAY ==
--- NOTE | 2023-12-20 15:03 | MHC.OFFVIS ---
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 She was referred to our cardiology office in follow-up. Today she presents for cardiology consultation. She states that she has a history of having poking like sensations to her mid chest which occurs randomly. The symptoms are not brought on by physical activity. She denies any chest pressure or heaviness. She does have shortness of breath when she climbs stairs. She feels this is a newer symptom for her. She has periodic dizziness, no presyncope, syncope, falls. She will feel her heart pounding fast at times and it has woken her from sleep. She describes having anxiety about her health. She has a history of smoking for 10 years, quit last year. She drinks wine periodically, not daily. He does not engage in any routine exercise. She has 5 grown children. Her paternal aunt and uncle each have pacemakers. Her uncle did pass away. Her mother has a history of hypertension. No other heart disease in the family. She denies a history of high blood pressure, diabetes, hyperlipidemia. [facility] Family History Paternal Aunt Pacemaker Paternal Uncle Pacemaker Social History Alcohol intake: current Alcohol intake frequency: a few times a week Alcohol type: wine Patient Tobacco Use Status: Never used Tobacco Review of Systems Const All systems reviewed & are unremarkable except as noted in HPI and below Denies chills, Denies fatigue, Denies fever(s), Denies frequent falls, Denies weakness, Denies weight gain and Denies weight loss ENT Reports dizziness Card Reports chest pain, Denies leg edema, Denies lightheadedness, Denies palpitations, Denies dyspnea, Reports dyspnea on exertion and Denies orthopnea Resp Denies cough, Denies dyspnea and Reports dyspnea on exertion GI Denies bloating and Denies change in bowel habits Musc Denies muscle weakness, Denies numbness and Denies tingling Neuro Reports dizziness, Denies frequent falls, Denies numbness, Denies tingling and Denies weakness Endo Denies fatigue and Denies palpitations Physical Exam Vital Signs: Last Vital Signs Pulse 57 12/20/23 15:08 BP 140/80 H 12/20/23 15:08 BMI result Body Mass Index 39.3 Const General: cooperative, healthy appearing, comfortable and no acute distress Orientation/consciousness: patient oriented x3 Neck Neck: Yes normal visual inspection Resp Effort & Inspection: normal respiratory effort Auscultation: clear to auscultation bilaterally, no crackles, no rales, no rhonchi and no wheezes Cardio Jugular venous distension: no JVD Rate: regular rate Rhythm: regular rhythm Heart sounds: S1 normal heart sound present, S2 normal heart sound present, no murmurs and no rubs Neuro General: patient oriented x3 Extrem General: Yes normal to inspection, No no pedal edema and No calf tenderness Psych Appearance: grossly normal Mental Status: mental status grossly normal Speech and movement: Normal speech and movement present Assessment & Plan Assessment & Plan (1) Chest discomfort: Code(s): R07.89 - Other chest pain Category: Medical Plan: Atypical sounding chest discomfort. Recent [facility] [place] for chest discomfort and heart palpitations without acute findings. EKG showed sinus rhythm with no acute ST or T-wave abnormalities. Her troponin levels were normal. She has cardiac risk factors of morbid obesity, prior smoking. He has no prior diagnosis of hypertension or heart disease. She tells me her blood pressure does run high at times due to anxiety. She reports cardiac evaluation for similar symptoms last year but did not have a stress test. Will reach out to [facility] to obtain last office note and echocardiogram. Will check an exercise stress test to evaluate for ischemia, blood pressure response to exercise. She had reported heart palpitations like her heart is beating fast. Will check a Holter monitor to assess for any arrhythmias. Plan to review results and call her to discuss. Overall her chest discomfort is atypical. If there are abnormalities I will arrange follow-up. At this time cardiology follow-up will be as needed. (2) Shortness of breath: Code(s): R06.02 - Shortness of breath Category: Medical Plan: Shortness of breath with stair climbing. Will be doing stress test as above. Will be reviewing echocardiogram results. (3) Heart palpitations: Code(s): R00.2 - Palpitations Category: Medical Plan: As above (4) Hospital discharge follow-up: Code(s): Z09 - Encounter for follow-up examination after completed treatment for conditions other than malignant neoplasm Category: Medical Plan: As above Orders: Orders CA stress test Today R06.02 - Shortness of breath, R07.89 - Other chest pain ECG 3 day holter monitor Today R00.2 - Palpitations Medications: Discontinued qxwwkgnnbd-qeiqqxkpodrdv-vmas 50-300-40 mg (Fioricet) Discontinued Reason: Patient no longer taking 1 cap PO TID PRN 10 caps 0RF pain azithromycin Discontinued Reason: Patient no longer taking take 500 mg today (day 1), then 250 mg for 4 days (days 2-5) 6 tabs 0RF upper resp infection fluticasone propionate 50 mcg/actuation (Flonase Allergy Relief) administer into each nostril Discontinued Reason: Patient no longer taking 1 spray intranasal DAILY 16 grams 0RF cefuroxime axetil Discontinued Reason: Patient no longer taking 500 mg PO BID 14 tabs 0RF prednisone Discontinued Reason: Patient no longer taking 40 mg (2 x 20 mg) PO DAILY 10 tabs 0RF cyclobenzaprine Discontinued Reason: Patient no longer taking 5 mg PO BEDTIME PRN 4 tabs 0RF muscle spasm Coding Level of Care Code New Pt Level 4 (77039) Diagnoses Chest discomfort R07.89 Shortness of breath R06.02 Heart palpitations R00.2 Hospital discharge follow-up Z09 Time Spent (min) 36
[2023-12-20 15:08] VITALS: BP 140/80; PULSE 57; BMI 39.3
== END 2023-12-20 15:54 | disposition home or self-care (01) ==
PROVIDERS: PCP Internal Medicine; Visit Provider Nurse Practitioner Family
DX: R07.89 Other chest pain (principal); R06.02 Shortness of breath; R00.2 Palpitations; Z09 Encounter for follow-up examination after completed treatment for conditions other than malignant neoplasm
CPT/HCPCS: 99204

== ENCOUNTER → 2023-12-20 14:47 | Outpatient (BNVA) | payer OTHER, SELFPAY | PROVIDERS: PCP Internal Medicine; Visit Provider Nurse Practitioner Family | DX: Z09 Encounter for follow-up examination after completed treatment for conditions other than malignant neoplasm (principal); R07.89 Other chest pain; R06.02 Shortness of breath; R00.2 Palpitations | CPT/HCPCS: 99202 ==

== ENCOUNTER → 2023-12-26 09:38 | Outpatient (REF) | payer OTHER, SELFPAY ==
--- NOTE | 2023-12-26 10:47 | HM_ITS ---
* Total monitoring time 3 days. * Underlying rhythm is sinus with an average rate of 62/Min. * No significant supraventricular or ventricular ectopy. * No significant arrhythmias. * No significant pauses or heart blocks. * No patient markers or diary events. MTDD
--- NOTE | 2023-12-26 10:47 | CA_ITS ---
Acquisition Time: 2023-12-26 09:53:56 Total Exercise Time: 00:08:00 Test Indications: CP, SOB Medications: SEE H Protocol: DONALD Max HR: 176 BPM 100% of Pred: 175 BPM Max BP: 190/090 mmHG Max Work Load: 10.1 METS Exercise stress test with exercise 8 min of Donald protocol, achieving 100% of MPHR, without anginal symptoms, without arrythmia, with BP 150/84 at baseline and 190/90 at peak, with artifact on tracings during exercise, without EKG changes meeting crtieria for ischemia. In recovery BP came down to 140/84. Pt reports feeling anxious prior to the start of the test. Test reviewed with Dr Hannon. Referred By: Angelina Jensen Overread By: ANGELINA JENSEN
== END ==
LOC: HO.CARD 09:38
PROVIDERS: PCP Internal Medicine; Visit Provider Nurse Practitioner Family
DX: R07.89 Other chest pain (principal); R06.02 Shortness of breath; R00.2 Palpitations
CPT/HCPCS: 93017; 93242

== ENCOUNTER → 2023-12-26 10:47 | Outpatient (BNV) | payer OTHER, SELFPAY | PROVIDERS: PCP Internal Medicine; Visit Provider Nurse Practitioner Family | DX: R00.1 Bradycardia, unspecified (principal) | CPT/HCPCS: 93016; 93018; 93244 ==

== ENCOUNTER 2024-02-09 09:19 | Emergency (ER) | payer OTHER, SELFPAY ==
--- NOTE | ~2024-02-09 | CT_ITS ---
EXAMINATION: CT HEAD WITHOUT CONTRAST CLINICAL INFORMATION: headache COMPARISON: CT dated March 19, 2022. Correlated to CT angiography head dated March 08, 2023. TECHNIQUE: Contiguous axial imaging was performed from the skull base to vertex without intravenous administration of contrast. This CT examination was performed using dose optimization techniques as appropriate, variously including the following: *Automated exposure control *Adjustment of mA and/or kV according to patient size (this includes techniques or standardized protocols for targeted exams where dose is matched to indication/reason for exam; i.e. extremities or head) *Use of iterative reconstruction technique DLP: 589 mGy-cm FINDINGS: Bony calvarium is intact. Skull base is intact. No acute intracranial hemorrhage, mass effect, midline shift hydrocephalus or herniation. [place]abtree-white matter differentiation is normal. Posterior cranial fossa contents demonstrated no acute intracranial hemorrhage or mass effect. Sellar/suprasellar region. No hemorrhage or masses. Craniocervical junction is intact and normal No air-fluid levels in the paranasal sinuses. Mucosal thickening, left maxillary sinus. Poor pneumatization of the frontal sinuses. Tympanic cavities and mastoid cells are aerated. Pneumatized petrous apices, congenital.. CT/CT head/brain wo IV con IMPRESSION: No acute or structural brain abnormality by CT. Electronically signed by: Akira Bell MD 02/09/2024 11:06 AM INE[facility]
[2024-02-09 09:22] VITALS: BP 151/87; PULSE 77; RESP 18; TEMP 36.9; O2SAT 99; BMI 38.5
--- NOTE | 2024-02-09 09:50 | ED_ITS ---
HPI - General Adult General Chief complaint: General Medical Stated complaint: Headache, brain fog Time Seen by Provider: 02/09/24 09:42 Source: patient and old records reviewed Mode of arrival: ambulatory Limitations: no limitations History of Present Illness ED Provider: RONALDO MONTERO narrative: 44 yo female with PMH of anxiety who notes intermittent brief disorientation issues and memory lapse since the Summer but more recently increased over 2 weeks. She has a mild dull headache. She notes she is dealing with some stress of an aunt dx with dementia so patient did ask if this was dementia. She has PCP follow up Tuesday. She has no other complaints. She did take herself off fluvoxamine 3 days ago but symptoms were before then. MD complaint: brain fog Onset (ago): month(s) Location: head Radiation: non-radiation Severity: moderate Relieving factors: none Exacerbating factors: other (stress) Associated symptoms: confusion Treatments prior to arrival: none Related Data Home Medications ?Medication ?Instructions ?Recorded ?Confirmed fluvoxamine 50 mg tablet 50 mg PO BEDTIME 12/20/23 12/20/23 Allergies Allergy/AdvReac Type Severity Reaction Status Date / Time aspirin Allergy Fainting Verified 02/09/24 09:25 Review of Systems 2 Review of Systems: Constitutional : No Fever, No Chills, No Fatigue ENT/Mouth : No sore throat, No Rhinorrhea Eyes: No Eye Pain, No Swelling, No Redness Cardiovascular : No Chest Pain, No SOB, No Dyspnea on Exertion Respiratory : No Cough, No Sputum Gastrointestinal : No Nausea, No Vomiting, No Diarrhea, No abdominal Pain Genitourinary : No Dysuria, No Urinary Frequency, No Hematuria, Musculoskeletal : No joint pain, No Myalgias, No Joint Swelling Skin : No Skin Lesions, No rash Neuro : No Weakness, No Numbness, No Dizziness, positive Headache All other systems reviewed and are negative [facility] Past Medical History Attestation statement: The following information was validated with the patient. Source: old records reviewed Medical History (Updated 02/09/24 @ 11:00 by Vanessa Almazan DO) Anxiety Family History Family History Paternal Aunt Pacemaker Paternal Uncle Pacemaker Social History Social History Alcohol intake: current Alcohol intake frequency: a few times a week Alcohol type: wine Patient Tobacco Use Status: Never used Tobacco Advance Directives: No Advance Directives Information Provided: Yes Do you have a plan to hurt others: No Plan Physical Exam ED Vital Signs: Vital Signs - 24 hr 02/09/24 09:22 Temperature 98.5 F Pulse Rate 77 Respiratory Rate 18 Blood Pressure 151/87 H Pulse Oximetry 99 Oxygen Delivery Method Room Air BMI result Body Mass Index 38.5 Appearance: Alert. Oriented X3. No acute distress. Eyes: Pupils equal, round and reactive to light. ENT: Pharynx normal. Neck: Normal inspection. Neck supple. CVS: Normal heart rate and rhythm. Pulses normal. Respiratory: No respiratory distress. Breath sounds normal. Abdomen: Soft and nontender. Skin: Skin warm and dry. Normal skin color. Normal skin turgor. Extremities: No lower extremity edema. No calf ttp Neuro: Oriented X 3. No motor deficit. No sensory deficit. no ataxia, no drift Medical Decision Making Medical Decision Making [facility] Narrative: 44 yo female with PMH of anxiety who presents with c/o intermittent brain fog memory lapse at this time will need basic labs, CT head for mass - she has no focal deficits there is a degree of life stress. She has appointment Tuesday with PCP. Doubt stroke, suspect transient amnesia or health anxiety. Differential Diagnosis Differential Diagnoses: The differential diagnosis associated with the presentation includes anxiety, stress, transient amnesia Admission/Observation Consideration of admission/observation: Escalation of care including admission/observation considered work up negative feels better has PCP appointment Tuesday Lab Data [facility] Lab Attestation statement: I reviewed the patient's lab results. 02/09/24 10:02 02/09/24 10:02 Labs: Lab Results 02/09/24 Range/Units 10:02 WBC 7.6 (4.8-10.8) X10*3/uL RBC 4.53 (4.20-5.50) X10*6/uL Hgb 13.5 (12.0-16.0) g/dl Hct 39.1 (37.0-47.0) % MCV 86.3 (80.0-98.0) fL MCH 29.8 (27.0-33.0) pg MCHC 34.5 (31.0-35.0) g/dl RDW 11.9 (11.0-16.0) % Plt Count 280 (160-400) X10*3/uL MPV 11.5 (9.4-12.3) fL Immature Gran % (Auto) 0.3 (0.0-0.4) % Neut % (Auto) 62.4 (45-73) % Lymph % (Auto) 30.5 (20-40) % [place] % (Auto) 6.2 (2-11) % Eos % (Auto) 0.3 (0-4) % Baso % (Auto) 0.3 (0-2) % Lymph # (Auto) 2.3 (1.2-4.9) X10*3/uL [place] # (Auto) 0.5 (0.1-1.2) X10*3/uL Eos # (Auto) 0.0 (0.0-0.4) X10*3/uL Baso # (Auto) 0.0 (0.0-0.2) X10*3/uL Abs Immat Gran (auto) 0.02 (0.00-0.03) X10*3/uL Absolute Neuts (auto) 4.8 (2.0-8.3) x10*3/uL Absolute Nucleated RBC 0.000 (0.0-0.012) X10*3/uL Nucleated RBC % (auto) 0.0 (0.0-0.2) /100WBC Sodium 137 (135-145) mmol/L Potassium 4.0 (3.3-5.1) mmol/L Chloride 105 (96-108) mmol/L Carbon Dioxide 25 (22-29) mmol/L Anion Gap 11 L (12-20) BUN 7 L (9-16) mg/dL Creatinine 0.70 (0.5-1.4) mg/dL Estim Creat Clear Calc 112.4 Estimated GFR > 60 Random Glucose 113 (60-115) mg/dL Calcium 9.5 D (8.4-10.2) mg/dL Total Bilirubin 0.5 (0.0-1.0) mg/dL Direct Bilirubin 0.2 (0.0-0.5) mg/dL AST 22 (5-31) U/L ALT 15 (0-31) U/L Alkaline Phosphatase 62 (39-117) U/L Total Protein 7.5 (6.5-8.0) g/dL Albumin 4.2 (3.5-5.0) g/dL Lipase 19 (8-78) U/L TSH 0.96 (0.32-4.0) uIU/mL Urine Color Yellow Urine Appearance Clear Urine pH 6.5 (5.0-9.0) Ur Specific [place] 1.010 (1.005-1.025) Urine Protein Negative (Neg-Trace) mg/dL Urine Glucose (UA) Negative (Negative) mg/dL Urine Ketones 15 (Negative) mg/dL Urine Blood Negative (Negative) Urine Nitrite Negative (Negative) Ur Leukocyte Esterase Small (1+) H (Negative) Urine RBC 0-2 (0-2) /HPF Urine WBC 6-10 H (0-5) /HPF Ur Squamous Epith Cells 6-10 (0-2) /HPF Urine Bacteria 1+ (None Seen) Hyaline Casts 0-2 (0-2) /LPF Urine Test NEGATIVE (NEGATIVE) Independent Interpretation I performed an independent interpretation of an: CT Scan (normal) Radiology Impression Discussion of test interpretation with radiology: I have reviewed the radiologist's reading. External Record Review External record reviewed: Inpatient record and Outpatient record Discharge Plan Discharge Clinical Impression: Memory changes Patient Disposition: Home, Self-Care Instructions: Disorders of Consciousness (DC) Additional Instructions: thyroid and labs checked normal CT head normal please follow up with your doctor on Tuesday for further testing return for any worsening symptoms or concerns. CT/CT head/brain wo IV con IMPRESSION: No acute or structural brain abnormality by CT. Prescriptions: No Action fluvoxamine 50 mg tablet 50 mg PO BEDTIME Print Language: [place] Island[place]
[2024-02-09 10:11] LABS: MANUAL DIFF FLAG NO
[2024-02-09 10:15] LABS: Appearance Urine Clear; Basophils Percent Auto 0.3 % (0-2); Color Urine Yellow; Eosinophils Percent Auto 0.3 % (0-4); Glucose Urine UA Negative (Negative); Hematocrit 39.1 % (37.0-47.0); Hemoglobin 13.5 g/dl (12.0-16.0); Imm Gran Abs Auto 0.02 X10*3/uL (0.00-0.03); Imm Gran Pct Auto 0.3 % (0.0-0.4); Leukocyte Esterase Urine Small (1+) (Negative); Lymphocytes Absolute Auto 2.3 X10*3/uL (1.2-4.9); Lymphocytes Percent Auto 30.5 % (20-40); Mean Corpuscular HGB Conc 34.5 g/dl (31.0-35.0); Mean Corpuscular Hemoglobin 29.8 pg (27.0-33.0); Mean Corpuscular Volume 86.3 fL (80.0-98.0); Mean Platelet Volume 11.5 fL (9.4-12.3); Monocytes Absolute Auto 0.5 X10*3/uL (0.1-1.2); Monocytes Percent Auto 6.2 % (2-11); Neutrophils Absolute Auto 4.8 x10*3/uL (2.0-8.3); Neutrophils Percent Auto 62.4 % (45-73); Nitrite Urine Negative (Negative); PH 6.5 (5.0-9.0); Platelet Count 280 X10*3/uL (160-400); Red Blood Count 4.53 X10*6/uL (4.20-5.50); Red Cell Distribution Width 11.9 % (11.0-16.0); UMIC TRIGGER UACC YES; Urine Blood Negative (Negative); Urine Ketones 15 mg/dL (Negative); Urine Protein Negative (Neg-Trace); White Blood Count 7.6 X10*3/uL (4.8-10.8)
[2024-02-09 10:17] LABS: UPreg QC Valid YES; Urine Pregnancy NEGATIVE (NEGATIVE)
[2024-02-09 10:28] LABS: Alanine Aminotransferase 15 U/L (0-31); Albumin Level 4.2 g/dL (3.5-5.0); Alkaline Phosphatase 62 U/L (39-117); Anion Gap 11 (12-20); Aspartate Amino Transferase 22 U/L (5-31); Bilirubin Direct 0.2 mg/dL (0.0-0.5); Bilirubin Total 0.5 mg/dL (0.0-1.0); Blood Urea Nitrogen 7 mg/dL (9-16); Calcium 9.5 mg/dL (8.4-10.2); Carbon Dioxide 25 mmol/L (22-29); Chloride 105 mmol/L (96-108); Creatinine Clr Calc Pharmacy 112.4; Estimated Glomerular Filt Rate > 60; Glucose Random 113 mg/dL (60-115); Lipase 19 U/L (8-78); Sodium 137 mmol/L (135-145); Total Protein 7.5 g/dL (6.5-8.0)
[2024-02-09 10:30] LABS: Bacteria Urine 1+ (None Seen); Hyaline Casts Urine 0-2 /LPF (0-2); RBC Urine 0-2 /HPF (0-2); UACC Culture Trigger YES
[2024-02-09 10:48] LABS: TSH reflex Free T4 0.96 uIU/mL (0.32-4.0)
[2024-02-09 11:30] VITALS: BP 151/98; PULSE 70; RESP 16; TEMP 36.1; O2SAT 98
== END 2024-02-09 11:30 | disposition home or self-care (01) ==
PROVIDERS: Emergency Provider Emergency Medicine; PCP Internal Medicine
DX: R51.9 Headache, unspecified (principal); R41.3 Other amnesia; Z79.899 Other long term (current) drug therapy
CPT/HCPCS: 36415; 70450; 80048; 80076; 81001; 81025; 83690; 84443; 85025; 87086; 99282; 99284

== ENCOUNTER → 2024-02-09 09:49 | Outpatient (BNV) | payer OTHER, SELFPAY | PROVIDERS: Emergency Provider Emergency Medicine; PCP Internal Medicine; Visit Provider Radiology Diagnostic Radiology | DX: R51.9 Headache, unspecified (principal) | CPT/HCPCS: 70450 ==

== ENCOUNTER 2024-02-27 00:56 | Emergency (ER) | payer OTHER, SELFPAY ==
--- NOTE | ~2024-02-27 | XR_ITS ---
EXAMINATION: XR HAND, LEFT CLINICAL INFORMATION: injury/pain COMPARISON: None available. TECHNIQUE: PA, lateral, and oblique views of the left hand. FINDINGS: The bones and soft tissues are normal. No fracture. Alignment is anatomic. Joint spaces are maintained. No erosions or soft tissue calcifications. XR/XR hand LT min 3V IMPRESSION: There is no acute osseous abnormality. Electronically signed by: Jose Mitchell MD 02/27/2024 02:19 AM [facility] MOREIRA
[2024-02-27 00:57] VITALS: BP 124/94; PULSE 67; RESP 16; TEMP 36.9; O2SAT 97; BMI 39.5
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
[2024-02-27] MEDS: Ibuprofen 600 MG TABLET PO (02:20)
[2024-02-27 02:24] VITALS: BP 124/94; PULSE 67; RESP 16; TEMP 36.9; O2SAT 97
== END 2024-02-27 02:24 | disposition home or self-care (01) ==
PROVIDERS: Emergency Provider Internal Medicine; PCP Internal Medicine
DX: S63.613A Unspecified sprain of left middle finger, initial encounter (principal); S63.619A Unspecified sprain of unspecified finger, initial encounter; Y04.2XXA Assault by strike against or bumped into by another person, initial encounter; Y93.89 Activity, other specified; Y92.89 Other specified places as the place of occurrence of the external cause; Y99.8 Other external cause status
CPT/HCPCS: 29130; 73130; 99283; 99284